=== PATIENT | male | born 1945 | race Caucasian/White ===

== ENCOUNTER 2017-04-16 19:09 | Observation (INO) | payer OTHER ==
[~2017-04-16] VITALS: Ht 167.6 cm; Wt 58.7 kg
[2017-04-16 19:45] LABS: HEMATOCRIT 44.6 % (38.0-50.0); HEMOGLOBIN 15.2 G/DL (12.5-16.6); MCH 30.4 PG (29.0-34.0); MCHC 34.1 G/DL (30.0-36.0); MCV 89.2 FL (86-99); PLATELET COUNT 241 K/uL (156-360); RBC DIS.WIDTH-CV 11.9 % (11.8-14.6); RBC DIS.WIDTH-SD 38.9 % (39-53); WHITE BLOOD COUNT 8.7 K/uL (4.1-10.2)
[2017-04-16 19:51] LABS: CHLORIDE 99 mEq/L (99-109); POTASSIUM 3.6 mEq/L (3.7-5.4); SODIUM 137 mEq/L (136-147)
[2017-04-16 19:52] LABS: GLUCOSE 170 mg/dL (70-99)
[2017-04-16 19:56] LABS: CREATININE 0.9 mg/dL (0.6-1.3); GFR ESTIMATE (CALCULATED) > 59 mL/min/ (58.99-99999)
[2017-04-16 20:03] LABS: TROP-I INTERPRETATION NEGATIVE; TROPONIN-I < 0.01 ng/mL (0.0-0.30)
[2017-04-16 20:11] LABS: MAGNESIUM 2.6 mg/dL (1.3-2.7)
[2017-04-16 20:16] LABS: UREA NITROGEN (BUN) 20 mg/dL (9-23)
[2017-04-16 21:29] LABS: THYROTROPIN (TSH) 1.7 MIU/L (0.4-5.5)
[2017-04-16] MEDS ORDERED: ZOCOR40 MG PO (21:50)
[2017-04-16] MEDS ORDERED: DIOVAN HCT 81 TABLET PO (21:51)
[2017-04-16] MEDS ORDERED: TOPROL XL50 MG PO (21:52)
[2017-04-16] MEDS ORDERED: NORVASC10 MG PO (21:52)
[2017-04-16] MEDS ORDERED: LITE COAT ASPI325 M1 PO (21:54)
[2017-04-16] MEDS ORDERED: EMERGEN-C 1,01000 MG PO (21:55)
[2017-04-16 22:42] LABS: APPEARANCE CLEAR ((CLEAR)); BILIRUBIN NEGATIVE; BLOOD NEGATIVE; COLOR YELLOW ((YELLOW)); GLUCOSE (STRIP) NEGATIVE; KETONES NEGATIVE; LEUKOCYTES TRACE; NITRITE NEGATIVE; PROTEIN (STRIP) NEGATIVE; UROBILINOGEN 0.2 MG/DL (0.2-1.0)
[2017-04-16 22:48] LABS: BACTERIA RARE /HPF; EPITHELIAL CELLS NONE SEEN /HPF; MUCUS NONE SEEN /LPF; RED BLOOD CELLS 0-5 /HPF (0-5); WHITE BLOOD CELLS 0-5 /HPF (0-5)
[2017-04-17 00:14] VITALS: BP 132/68
[2017-04-17 03:03] LABS: TROP-I INTERPRETATION NEGATIVE; TROPONIN-I < 0.01 ng/mL (0.0-0.30)
[2017-04-17 04:05] VITALS: BP 113/65
[2017-04-17 08:39] LABS: TROP-I INTERPRETATION NEGATIVE; TROPONIN-I < 0.01 ng/mL (0.0-0.30)
[2017-04-17 11:26] VITALS: BP 111/58
[2017-04-17 16:04] VITALS: BP 174/98
[2017-04-17 16:13] VITALS: BP 119/60
== END 2017-04-17 18:25 | disposition home or self-care (01) ==
LOC: EME 19:09 → 5WEST 22:46 → EDOF 22:46 → ENRESERV 22:50 → 5WEST 04-17 00:01
PROVIDERS: Physician Assistant
DX: R55 Syncope and collapse (principal); R00.2 Palpitations; I10 Essential (primary) hypertension; E78.5 Hyperlipidemia, unspecified; R73.03 Prediabetes; K59.00 Constipation, unspecified
CPT/HCPCS: 71046; 80048 91; 81003; 83735; 84443; 84484; 85027; 93005; 99281; 99285; G0378; J1644; J7030